=== PATIENT | male | born 1955 | race Caucasian/White ===

== ENCOUNTER 2018-04-20 05:41 | Day surgery (SDC) | payer OTHER ==
[2018-04-20] MEDS ORDERED: SOD CHLORIDE 0.9% 1,000 ML IV (07:00)
[2018-04-20] MEDS ORDERED: CEFAZOLIN 2 GM/50 ML (PMX) 50 ML IVPB (07:00)
[2018-04-20] MEDS ORDERED: BUPIVACAINE 0.25% (MPF) 30 ML INJ (08:16)
[2018-04-20] MEDS ORDERED: MIDAZOLAM 1 MG/ML 2 ML INJ (08:26)
[2018-04-20] MEDS: BUPIVACAINE 0.25% (MPF) 30 ML INJ INJ ×2 (09:01)
[2018-04-20] MEDS ORDERED: ROCURONIUM 50 MG INJ (09:12)
[2018-04-20] MEDS ORDERED: PROPOFOL 20 ML (09:12)
[2018-04-20] MEDS ORDERED: CEFAZOLIN 1 GM INJ (09:12)
[2018-04-20] MEDS ORDERED: GLYCOPYRROLATE 0.4 MG INJ (09:12)
[2018-04-20] MEDS ORDERED: NEOSTIGMINE 3 MG/3 ML SYRINGE (09:12)
[2018-04-20] MEDS ORDERED: LIDOCAINE 2% (SDV) 5 ML INJ (09:12)
[2018-04-20] MEDS ORDERED: ONDANSETRON 4 MG INJ (09:13)
[2018-04-20] MEDS ORDERED: MEPERIDINE 25 MG INJ IV (09:30)
[2018-04-20] MEDS ORDERED: DIPHENHYDRAMINE 50 MG INJ IV (09:30)
[2018-04-20] MEDS ORDERED: METOCLOPRAMIDE 10 MG INJ IV (09:30)
[2018-04-20] MEDS ORDERED: ONDANSETRON 4 MG INJ IV (09:30)
[2018-04-20] MEDS ORDERED: FENTAnyl 50 MCG/ML VIAL IV (09:30)
[2018-04-20] MEDS ORDERED: HYDROmorphONE 1 MG/5 ML IV SYRINGE IV ×2 (09:30)
[2018-04-20] MEDS: HYDROCODONE/APAP (5/325) TAB PO (10:23)
== END 2018-04-20 11:20 | disposition home or self-care (01) ==
LOC: SDS 05:41
DX: K80.10 Calculus of gallbladder with chronic cholecystitis without obstruction (principal); E11.9 Type 2 diabetes mellitus without complications
CPT/HCPCS: 47562; 82962; 88304